=== PATIENT | male | born 1965 | race Caucasian/White ===

== ENCOUNTER 2021-05-23 19:14 | Inpatient (IN) | payer OTHER ==
[~2021-05-23] VITALS: Ht 167.6 cm; Wt 73.4 kg
--- NOTE | 2021-05-23 20:05 | NUR ---
[employer] PROGRAM DIRECTOR: PER DR MCWILLIAMS NO CODE NEURO
--- NOTE | 2021-05-23 20:16 | NUR ---
PT HERE FOR C/O FEELING HIS EQUILIBRIUM IS OFF X1 WEEK. PT REPORTS HE STARTED ANTIBIOTIC ON SUNDAY FOR GUM INFECTION.
[2021-05-23 20:48] LABS: BASOPHILS % (AUTO) 0 % (0-1); EOSINOPHILS % (AUTO) 1 % (1-7); LYMPHOCYTES % (AUTO) 35 % (22-44); MEAN CORPUSCULAR HEMOGLOBIN 30.2 pg (27.5-34.5); MEAN CORPUSCULAR HGB CONC 34.7 g/dL (33.2-36.2); MEAN PLATELET VOLUME 7.4 fL (7.4-10.4); MONOCYTES % (AUTO) 11 % (2-9); NEUTROPHILS % (AUTO) 53 % (42-75); PLATELET COUNT 214 x10^3/uL (130-400); RED BLOOD COUNT 6.03 x10^6/uL (4.38-5.82)
--- NOTE | 2021-05-23 20:52 | NUR ---
PT TRANSPORTED TO MRI.
[2021-05-23 20:55] LABS: CHLORIDE 108 mmol/L (98-107)
[2021-05-23 20:56] LABS: ALANINE AMINOTRANSFERASE 43 U/L (12-78); ALBUMIN 3.6 g/dL (3.4-5.0); ANION GAP 9 mmol/L (5-15); CALCIUM 8.8 mg/dL (8.5-10.1); CREATININE 0.58 mg/dL (0.7-1.3)
[2021-05-23 21:05] LABS: ALKALINE PHOSPHATASE 108 U/L (45-117); BILIRUBIN,TOTAL 0.5 mg/dL (0.2-1.0); TOTAL PROTEIN 7.3 g/dL (6.4-8.2)
[2021-05-23 21:15] LABS: TROPONIN I 0.122 ng/mL (0.000-0.045)
[2021-05-23] MEDS ORDERED: GADOTERATE 7.5 MMOL/15ML SYR ONE (21:16)
[2021-05-23] MEDS ORDERED: ASPIRIN 81 MG TABLET CHEW PO ONE (21:30)
[2021-05-23 21:33] LABS: FREE T4 (FREE THYROXINE) 2.83 ng/dL (0.76-1.46)
[2021-05-23] MEDS ORDERED: ASPIRIN 81 MG TABLET CHEW ONE (23:07)
--- NOTE | 2021-05-23 23:15 | NUR ---
REPORT GIVEN TO GILDARDO DUFF
[2021-05-23] MEDS ORDERED: OMNIPAQUE 350 MG/ML, 100ML BOTTLE ONE (23:18)
--- NOTE | 2021-05-23 23:20 | NUR ---
REPORT RECEIVE FROM REJI RN
[2021-05-24] MEDS ORDERED: DOCUSATE 100 MG CAPSULE PO PRN
[2021-05-24] MEDS ORDERED: GUAIFENESIN/DM 200-20MG, 10ML UDC PO PRN
[2021-05-24] MEDS ORDERED: METHOCARBAMOL 500 MG TABLET PO PRN
[2021-05-24] MEDS ORDERED: ATORVASTATIN 40 MG TABLET PO SCH
[2021-05-24] MEDS ORDERED: morphine SULFATE 10 MG/ML, 1ML IVPush PRN
[2021-05-24] MEDS ORDERED: ENALAPRILAT 1.25 MG/ML, 2ML IVPush PRN ×2
[2021-05-24] MEDS ORDERED: HYDROcodone/APAP 5/325 TABLET PO PRN
[2021-05-24] MEDS ORDERED: TEMAZEPAM 15 MG CAPSULE PO PRN
[2021-05-24] MEDS ORDERED: ONDANSETRON 2MG/ML, 2ML IVPush PRN
[2021-05-24] MEDS ORDERED: ACETAMINOPHEN 325 MG TABLET PO PRN
--- NOTE | 2021-05-24 | NUR ---
PT RESTING ON GURNEY, DENIES NEEDS AT THIS TIME.
[2021-05-24 00:33] LABS: TROPONIN I 0.126 ng/mL (0.000-0.045)
--- NOTE | 2021-05-24 01:35 | NUR ---
PT BEING TRANSFERED TO CARD TELE, BY CARD TELE RNS
[2021-05-24 01:43] VITALS: BP 136/87
[2021-05-24] MEDS ORDERED: CLIN150C15 PO (01:58)
[2021-05-24] MEDS: SODIUM CHLORIDE 0.9% 1,000 ML IV SCH ×2 (02:32→17:24)
[2021-05-24] MEDS: METOPROLOL TARTRATE 25 MG TAB PO SCH ×3 (02:35→17:35)
[2021-05-24 05:09] LABS: BASOPHILS % (AUTO) 0 % (0-1); EOSINOPHILS % (AUTO) 1 % (1-7); LYMPHOCYTES % (AUTO) 38 % (22-44); MEAN CORPUSCULAR HEMOGLOBIN 30.2 pg (27.5-34.5); MEAN CORPUSCULAR HGB CONC 35.2 g/dL (33.2-36.2); MEAN PLATELET VOLUME 7.4 fL (7.4-10.4); MONOCYTES % (AUTO) 10 % (2-9); NEUTROPHILS % (AUTO) 50 % (42-75); PLATELET COUNT 210 x10^3/uL (130-400); RED BLOOD COUNT 5.83 x10^6/uL (4.38-5.82); RED CELL DISTRIBUTION WIDTH 13.8 % (9.4-14.8)
[2021-05-24 05:13] LABS: CHLORIDE 109 mmol/L (98-107)
[2021-05-24 05:33] LABS: ANION GAP 6 mmol/L (5-15); CREATININE 0.49 mg/dL (0.7-1.3); TROPONIN I 0.133 ng/mL (0.000-0.045)
[2021-05-24 07:01] VITALS: BP 151/97
[2021-05-24] MEDS ORDERED: ASPIRIN 81 MG TABLET CHEW PO SCH (09:00)
[2021-05-24] MEDS ORDERED: CLOPIDOGREL 75 MG TABLET PO SCH (09:00)
[2021-05-24 11:03] LABS: AMPHETAMINE SCREEN, URINE Negative (Negative); BARBITURATE SCREEN, URINE Negative (Negative); BENZODIAZEPINE SCREEN, URINE Negative (Negative); CANNABINOID SCREEN, URINE Positive (Negative); COCAINE SCREEN, URINE Negative (Negative); METHADONE SCREEN, URINE Negative (Negative); OPIATE SCREEN, URINE Negative (Negative)
[2021-05-24 12:07] VITALS: BP 139/79
[2021-05-24] MEDS ORDERED: ASPI-963 PO (16:45)
[2021-05-24] MEDS ORDERED: METH10TA6 PO (16:45)
[2021-05-24] MEDS ORDERED: ATOR40TA78 PO (16:45)
[2021-05-24] MEDS ORDERED: CLOP75TA52 PO ×2 (16:45)
[2021-05-24] MEDS ORDERED: METO25TA35 PO (16:45)
[2021-05-25] MEDS ORDERED: LISI5TAB7 PO (08:38)
== END 2021-05-24 18:23 | disposition home or self-care (01) | DRG 64 ==
LOC: ED 19:44 → EDIP 22:47 → 5SO 05-24 01:39
PROVIDERS: ADMIT Internal Medicine; ATTEND Hospitalist
DX: I61.4 Nontraumatic intracerebral hemorrhage in cerebellum (principal); I21.A1 Myocardial infarction type 2; I50.20 Unspecified systolic (congestive) heart failure; R13.10 Dysphagia, unspecified; D75.1 Secondary polycythemia; E05.00 Thyrotoxicosis with diffuse goiter without thyrotoxic crisis or storm; E87.8 Other disorders of electrolyte and fluid balance, not elsewhere classified; F17.210 Nicotine dependence, cigarettes, uncomplicated; R29.700 NIHSS score 0; R29.810 Facial weakness; R73.9 Hyperglycemia, unspecified; Z88.0 Allergy status to penicillin
CPT/HCPCS: 36415; C8929; 70496; 70498; 70553; 80048; 80053; 80307; 84439; 84443; 84481; 84484; 85025; 93005; Q9957; Q9967; A9575; J7030

== ENCOUNTER → 2021-08-18 | Outpatient (CLI) | payer OTHER ==
[~2021-08-18] MED LIST: ASPI-963 PO; ATOR40TA78 PO; CLIN150C17 PO; CLOP75TA52 PO; LISI5TAB7 PO; METH10TA6 PO; METO25TA35 PO; REGADENOSON 0.4 MG/5 ML SYRINGE ONE
== END | disposition home or self-care (01) ==
LOC: CFH 08:00
PROVIDERS: ATTEND Internal Medicine Cardiovascular Disease
DX: I08.1 Rheumatic disorders of both mitral and tricuspid valves (principal); I21.09 ST elevation (STEMI) myocardial infarction involving other coronary artery of anterior wall; I42.9 Cardiomyopathy, unspecified; I21.4 Non-ST elevation (NSTEMI) myocardial infarction; I25.5 Ischemic cardiomyopathy
CPT/HCPCS: 78452; 93017; A9502; C8929; J2785; Q9957